=== PATIENT | female | born 1980 | race Caucasian/White ===

== ENCOUNTER 2022-11-13 06:42 | Emergency (ER) | payer BC, SELFPAY ==
[2022-11-13 06:52] VITALS: BP 126/86; PULSE 76; RESP 18; TEMP 36.5; O2SAT 100; BMI 25.1
--- NOTE | 2022-11-13 07:59 | ED.GENADULT ---
HPI - General Adult General Chief complaint: Sore Throat Stated complaint: swollen throat Time Seen by Provider: 11/13/22 07:21 History of Present Illness HPI narrative: 42-year-old woman here with complaint of sore throat. Seemed to exacerbate more quickly or least woke feeling like she was not going to be able to breathe. This made her worried and felt she should be evaluated. Is not having any trouble breathing now. Does not necessarily endorse shortness of breath when flat otherwise. She has not had a fever. Has tried ibuprofen and saltwater gargles. She has had some degree of pain over the last week. Does hurt to swallow. As soon as I sit down she notes how she just feels claustrophobic in their room at the end over here and is wondering if we can just call her with results of ?strep and COVID? that were pending. Related Data Home Medications Medication Instructions Recorded Confirmed dextroamphetamine-amphetamine 15 1 tab PO BID 11/13/22 11/13/22 mg tablet gabapentin 300 mg capsule 300 mg PO 3XD 11/13/22 11/13/22 trazodone 50 mg tablet 50 mg PO QPM 11/13/22 11/13/22 venlafaxine 37.5 mg 37.5 mg PO DAILY 11/13/22 11/13/22 capsule,extended release 24 hr Allergies Allergy/AdvReac Type Severity Reaction Status Date / Time No Known Drug Allergies Allergy Verified 11/13/22 06:54 Review of Systems Status of ROS: Reports: 6 or more systems reviewed and unremarkable except as noted in History and below Exam Narrative: Exam Narrative: Breathing easily. NAD. No stridor. Does seem mildly agitated. Carefully casually groomed. Lungs are clear. Neck is supple I do not appreciate lymphadenopathy. Seems maybe a little sore to palpation the right upper neck. Oropharynx does not demonstrate trismus however there is clear asymmetry with swelling of the right side soft palate notably more than the left. Not much erythema in the throat though. I do not see tonsillar edema. Heart with regular rate and rhythm. Const: Vital Signs, click to edit/add: Vital Signs - 24 hr 11/13/22 06:52 Temperature 97.7 F Pulse Rate [Left P ulse Oximeter] 76 Respiratory Rate 18 Blood Pressure [Ri ght Upper Arm] 126/86 Pulse Oximetry 100 Oxygen Delivery Me thod Room Air Documenting provider has reviewed patient's vital signs: yes Course Vital Signs Vital signs: Initial Vital Signs Temperature 97.7 F 11/13/22 06:52 Temperature Source Temporal Artery Scan 11/13/22 06:52 Pulse Rate 76 11/13/22 06:52 Respiratory Rate 18 11/13/22 06:52 Blood Pressure 126/86 11/13/22 06:52 Blood Pressure Mean 99 11/13/22 06:52 Blood Pressure Position Sitting 11/13/22 06:52 Pulse Oximetry 100 11/13/22 06:52 Oxygen Delivery Method Room Air 11/13/22 06:52 Vital Signs Temperature 97.7 F 11/13/22 06:52 Pulse Rate 76 11/13/22 06:52 Respiratory Rate 18 11/13/22 06:52 Blood Pressure 126/86 11/13/22 06:52 Pulse Oximetry 100 11/13/22 06:52 Oxygen Delivery Method Room Air 11/13/22 06:52 Temperature 97.7 F 11/13/22 06:52 Pulse Rate 76 11/13/22 06:52 Respiratory Rate 18 11/13/22 06:52 Blood Pressure 126/86 11/13/22 06:52 Pulse Oximetry 100 11/13/22 06:52 Oxygen Delivery Method Room Air 11/13/22 06:52 Medical Decision Making MDM Narrative Medical decision making narrative: I do have concerns of abscess which I discussed with Soila. She began rubbing her upper right throat at that point. I think less likely is strep or COVID or influenza. Certainly possible that there is viral process here otherwise but would want to definitely rule out a elvia tonsillar abscess. I perceived agreement with this plan. She did not feel she needed anything for pain nausea at this time. I left to place orders including contrasted soft tissue CT. Subsequently heard that Soila had departed the emergency department. Discharge Plan Discharge Clinical Impression: Left against medical advice, Abscess, peritonsillar, Pharyngitis Patient Disposition: Left Against Medical Advice Condition: Unchanged Prescriptions: No Action venlafaxine 37.5 mg capsule,extended release 24hr 37.5 mg PO DAILY trazodone 50 mg tablet 50 mg PO QPM dextroamphetamine-amphetamine 15 mg tablet 1 tab PO BID gabapentin 300 mg capsule 300 mg PO 3XD Follow Up/Referrals: Angeles Head PAYuriC [Primary Care Provider] - Stand Alone Forms: MyHealth Info Instructions
--- NOTE | 2022-11-13 08:12 | ED.NURSE ---
Pt reports she cannot be in the room anymore and left AMA around 0742
[2022-11-13 08:16] LABS: Strep A DNA Probe* NOT DETECTED (Not Detectd)
[2022-11-13 08:21] LABS: PCR FLU A Negative PCR FLU A (Negative); PCR FLU B Negative PCR FLU B (Negative); PCR RSV Negative PCR RSV (Negative)
[2022-11-13 08:30] LABS: SARS PCR* Negative SARS-CoV-2 (Negative)
== END 2022-11-13 08:41 | disposition left against medical advice (07) ==
LOC: ED 08:40
PROVIDERS: Emergency Provider Family Medicine; PCP Physician Assistant Medical
DX: J36 Peritonsillar abscess (principal); Z53.29 Procedure and treatment not carried out because of patient's decision for other reasons
CPT/HCPCS: 80048; 85025; 86140; 87631; 87651; 99283

== ENCOUNTER 2022-11-13 20:32 | Emergency (ER) | payer BC, SELFPAY ==
[2022-11-13 20:38] VITALS: BP 138/98; PULSE 92; RESP 16; TEMP 36.4; O2SAT 100; BMI 25.1
--- NOTE | 2022-11-13 20:55 | ED.GENADULT ---
HPI - General Adult General Date Seen: 11/13/22 <Erica Cabrera MD - Last Filed: 11/15/22 16:42> Chief complaint: Ear/Nose/Throat Problem <Erica Cabrera MD - Last Filed: 11/15/22 16:42> Stated complaint: throat swollen <Erica Cabrera MD - Last Filed: 11/15/22 16:42> Time Seen by Provider: 11/13/22 20:54 <Erica Cabrera MD - Last Filed: 11/15/22 16:42> Source: patient <Erica Cabrera MD - Last Filed: 11/15/22 16:42> Mode of arrival: ambulatory <MD Yuri Lei Last Filed: 11/15/22 16:42> Limitations: no limitations <MD Yuri Lei Last Filed: 11/15/22 16:42> History of Present Illness HPI narrative: Patient is a 42-year-old female here for re-evaluation of right throat swelling and pain. She was here early this morning and the plan was to do a CT scan but she says that she was just getting claustrophobic, she was worried about work, she says the ER door outside her room kept opening and closing the whole thing just was freaking her out so she left AMA. She says she is now feeling calmer, and wants to find out what is wrong with her throat. She has not had fevers, she is eating and drinking okay, but continues to have swelling and pain in the right side of her throat. <Erica Cabrera MD - Last Filed: 11/15/22 16:42> Related Data Home medications: Home Medications Medication Instructions Recorded Confirmed dextroamphetamine-amphetamine 15 1 tab PO BID 11/13/22 11/13/22 mg tablet gabapentin 300 mg capsule 300 mg PO 3XD 11/13/22 11/13/22 trazodone 50 mg tablet 50 mg PO QPM 11/13/22 11/13/22 venlafaxine 37.5 mg 37.5 mg PO DAILY 11/13/22 11/13/22 capsule,extended release 24 hr <MD Yuri Lei Last Filed: 11/15/22 16:42> Allergies/adverse reactions: Allergies Allergy/AdvReac Type Severity Reaction Status Date / Time No Known Drug Allergies Allergy Verified 11/13/22 06:54 <Erica Cabrera MD - Last Filed: 11/15/22 16:42> Review of Systems Status of ROS: Reports: 6 or more systems reviewed and unremarkable except as noted in History and below <Erica Cabrera MD - Last Filed: 11/15/22 16:42> [facility] Social History: Social History Smoking Status: Light tobacco smoker What tobacco products do you use: cigarettes Do you use any of these nicotine containing products: None Second hand tobacco smoke exposure: No How often do you have a drink containing alcohol: never How often do you have six or more drinks on one occasion: Never AUDIT-C Alcohol total score: 0 Non-prescribed substance use: denies use <Erica Cabrera MD - Last Filed: 11/15/22 16:42> Exam Narrative: Exam Narrative: Vital signs as noted above. In general, an alert, well-appearing patient. Voice is normal. Head: Normocephalic, atraumatic. Eyes: Pupils are equal reactive. Extraocular movements are full. Conjunctivae are normal. ENT: Mucous membranes are moist. She does have asymmetric swelling of the soft palate on the right with shift of the uvula to the left. Airways patent. Neck: Supple without lymphadenopathy. No stridor. Heart: Regular rate and rhythm. No murmur or rub. Lungs: Clear bilaterally. No increased work of breathing, crackles or wheezes. Abdomen: Soft and nontender. No organomegaly. Extremities: Well perfused. No edema. No calf tenderness. Pulses intact. Neurologic: Patient is alert and oriented to person and place. Speech is fluent. Face is symmetric. Moves all extremities equally. Affect: Normal. Skin: Warm and dry. Well perfused. <Erica Cabrera MD - Last Filed: 11/15/22 16:42> Const: Vital Signs, click to edit/add: Vital Signs - 24 hr 11/13/22 20:38 11/13/22 21:14 11/13/22 21:41 Temperature 97.5 F L Pulse Rate [Pulse Oximeter] 92 73 71 Respiratory Rate 16 18 18 Blood Pressure [Le ft Upper Arm] 138/98 H 129/84 125/86 Pulse Oximetry 100 98 96 Oxygen Delivery Me thod Room Air Room Air 11/13/22 22:44 Temperature Pulse Rate [Pulse Oximeter] 73 Respiratory Rate 18 Blood Pressure [Le ft Upper Arm] 132/99 H Pulse Oximetry 100 Oxygen Delivery Me thod Room Air <Erica Cabrera MD - Last Filed: 11/15/22 16:42> Vital Signs, click to edit/add: Vital Signs - 24 hr 11/13/22 20:38 11/13/22 21:14 11/13/22 21:41 Temperature 97.5 F L Pulse Rate [Pulse Oximeter] 92 73 71 Respiratory Rate 16 18 18 Blood Pressure [Le ft Upper Arm] 138/98 H 129/84 125/86 Pulse Oximetry 100 98 96 Oxygen Delivery Me thod Room Air Room Air 11/13/22 22:44 Temperature Pulse Rate [Pulse Oximeter] 73 Respiratory Rate 18 Blood Pressure [Le ft Upper Arm] 132/99 H Pulse Oximetry 100 Oxygen Delivery Me thod Room Air <Laura Diana MD - Last Filed: 11/14/22 00:17> Documenting provider has reviewed patient's vital signs: yes <Erica Cabrera MD - Last Filed: 11/15/22 16:42> Course Course Hospital Course: Overall she is well-appearing, not showing any signs of toxicity or airway compromise. She does however have asymmetric swelling around her right tonsil and palate and I do agree that abscess needs to be ruled out. I have ordered an IV, fluids, labs and CT. She says that she is now feeling a lot calmer and will be able to complete evaluation. She denies the need for anything for pain right now. Patient is signed out to Dr. Manley who will follow up on labs and CT. Please see an addendum for final disposition and plan. <Erica Cabrera MD - Last Filed: 11/15/22 16:42> Reevaluation(s) Reevaluation #1: Have called [facility] to let them know that patient is quite anxious to get her report. They states she is next in line. Have let the patient know this. She has been wanting to leave, have already discussed with her that we need her to stay. There certainly can be abscess, airway compromise. I really do not feel comfortable calling her with x-ray results from a soft tissue CT of her neck. Reviewed with her that we will have no way of getting her meds. She did agree to stay. <Laura Diana MD - Last Filed: 11/14/22 00:17> Time: 23:48 <Laura Diana MD - Last Filed: 11/14/22 00:17> Reevaluation #2: Have reviewed CT findings with patient. She knows she does not have COVID or strep. Did reach out to our ENT Dr. Means. He recommends steroids for 6 days in trial of outpatient treatment. Patient would prefer this, does not want to going to the hospital, does not want surgery. She is happy to hear that we will be trying outpatient management with antibiotics and steroids. <Laura Diana MD - Last Filed: 11/14/22 00:17> Time: 00:05 <Laura Diana MD - Last Filed: 11/14/22 00:17> Consultations Consultation #1: Dr. Means did call, requested that the patient come to clinic to see him in the morning here at [place] at 930am as she wants to go home. He will assess her and see if he feels that surgery should be considered. Reassured him that she can currently open mouth, has no symptoms of airway compromise. <Laura Diana MD - Last Filed: 11/14/22 00:17> Time: 00:15 <Laura Diana MD - Last Filed: 11/14/22 00:17> Vital Signs Vital signs: Initial Vital Signs Temperature 97.5 F L 11/13/22 20:38 Temperature Source Temporal Artery Scan 11/13/22 20:38 Pulse Rate 92 11/13/22 20:38 Pulse Rhythm Regular 11/13/22 20:38 Respiratory Rate 16 11/13/22 20:38 Blood Pressure 138/98 H 11/13/22 20:38 Blood Pressure Mean 111 H 11/13/22 20:38 Pulse Oximetry 100 11/13/22 20:38 Oxygen Delivery Method Room Air 11/13/22 20:38 Vital Signs Temperature 97.5 F L 11/13/22 20:38 Pulse Rate 92 11/13/22 20:38 Respiratory Rate 16 11/13/22 20:38 Blood Pressure 138/98 H 11/13/22 20:38 Pulse Oximetry 100 11/13/22 20:38 Oxygen Delivery Method Room Air 11/13/22 20:38 Temperature 97.5 F L 11/13/22 20:38 Pulse Rate 73 11/13/22 22:44 Respiratory Rate 18 11/13/22 22:44 Blood Pressure 132/99 H 11/13/22 22:44 Pulse Oximetry 100 11/13/22 22:44 Oxygen Delivery Method Room Air 11/13/22 22:44 <Erica Cabrera MD - Last Filed: 11/15/22 16:42> Initial Vital Signs Temperature 97.5 F L 11/13/22 20:38 Temperature Source Temporal Artery Scan 11/13/22 20:38 Pulse Rate 92 11/13/22 20:38 Pulse Rhythm Regular 11/13/22 20:38 Respiratory Rate 16 11/13/22 20:38 Blood Pressure 138/98 H 11/13/22 20:38 Blood Pressure Mean 111 H 11/13/22 20:38 Pulse Oximetry 100 11/13/22 20:38 Oxygen Delivery Method Room Air 11/13/22 20:38 Vital Signs Temperature 97.5 F L 11/13/22 20:38 Pulse Rate 92 11/13/22 20:38 Respiratory Rate 16 11/13/22 20:38 Blood Pressure 138/98 H 11/13/22 20:38 Pulse Oximetry 100 11/13/22 20:38 Oxygen Delivery Method Room Air 11/13/22 20:38 Temperature 97.5 F L 11/13/22 20:38 Pulse Rate 73 11/13/22 22:44 Respiratory Rate 18 11/13/22 22:44 Blood Pressure 132/99 H 11/13/22 22:44 Pulse Oximetry 100 11/13/22 22:44 Oxygen Delivery Method Room Air 11/13/22 22:44 <Laura Diana MD - Last Filed: 11/14/22 00:17> Medical Decision Making Lab Data Lab results reviewed: Yes I reviewed the patient's lab results <Laura Diana MD - Last Filed: 11/14/22 00:17> Labs: Lab Results 11/13/22 Range/Units 21:07 WBC 10.65 (4.50-11.00) K/uL RBC 4.49 (4.00-5.20) m/uL Hgb 13.7 (12.0-16.0) gm/dL Hct 41.1 (33.0-51.0) % MCV 92 (80-100) fL MCH 31 (26-34) pg MCHC 33 (32-36) gm/dL RDW Coeff of Lia 12.3 (11.5-15.5) % Plt Count 308 (140-440) K/uL Neut % (Auto) 77.1 H (42.0-72.0) % Lymph % (Auto) 15.0 L (20-44) % [place] % (Auto) 5.7 (0.0-11.0) % Eos % (Auto) 0.8 (0.0-7.0) % Baso % (Auto) 0.3 (0.0-3.0) % Neut # (Auto) 8.20 H (1.7-7.0) K/uL Lymph # (Auto) 1.60 (0.90-2.90) K/uL [place] # (Auto) 0.60 (0.00-0.90) K/UL Eos # (Auto) 0.08 (0.00-0.50) K/uL Baso # (Auto) 0.03 (0.00-0.30) K/uL Sodium 134 L (135-149) mmol/L Potassium 3.5 L (3.6-5.1) mmol/L Chloride 104 (96-114) mmol/L Carbon Dioxide 24 (20-32) mmol/L BUN 8 (5-24) mg/dL Creatinine 0.6 (0.5-1.5) mg/dL Estimated Creat Clear 117.57 Estimated GFR 114 ml/min Glucose 109 (60-115) mg/dL Calcium 9.1 (8.4-10.6) mg/dL C-Reactive Protein 2.6 H (0.5-1.0) mg/dL SARS-CoV-2 (PCR) Negative SARS-CoV-2 (Negative) Group A Strep DNA NOT DETECTED (Not Detectd) <Erica Cabrera MD - Last Filed: 11/15/22 16:42> Lab Results 11/13/22 Range/Units 21:07 WBC 10.65 (4.50-11.00) K/uL RBC 4.49 (4.00-5.20) m/uL Hgb 13.7 (12.0-16.0) gm/dL Hct 41.1 (33.0-51.0) % MCV 92 (80-100) fL MCH 31 (26-34) pg MCHC 33 (32-36) gm/dL RDW Coeff of Lia 12.3 (11.5-15.5) % Plt Count 308 (140-440) K/uL Neut % (Auto) 77.1 H (42.0-72.0) % Lymph % (Auto) 15.0 L (20-44) % [place] % (Auto) 5.7 (0.0-11.0) % Eos % (Auto) 0.8 (0.0-7.0) % Baso % (Auto) 0.3 (0.0-3.0) % Neut # (Auto) 8.20 H (1.7-7.0) K/uL Lymph # (Auto) 1.60 (0.90-2.90) K/uL [place] # (Auto) 0.60 (0.00-0.90) K/UL Eos # (Auto) 0.08 (0.00-0.50) K/uL Baso # (Auto) 0.03 (0.00-0.30) K/uL Sodium 134 L (135-149) mmol/L Potassium 3.5 L (3.6-5.1) mmol/L Chloride 104 (96-114) mmol/L Carbon Dioxide 24 (20-32) mmol/L BUN 8 (5-24) mg/dL Creatinine 0.6 (0.5-1.5) mg/dL Estimated Creat Clear 117.57 Estimated GFR 114 ml/min Glucose 109 (60-115) mg/dL Calcium 9.1 (8.4-10.6) mg/dL C-Reactive Protein 2.6 H (0.5-1.0) mg/dL SARS-CoV-2 (PCR) Negative SARS-CoV-2 (Negative) Group A Strep DNA NOT DETECTED (Not Detectd) <Laura Diana MD - Last Filed: 11/14/22 00:17> Imaging Data CT- Other: Attestation: I have reviewed the pertinent imaging results. <Laura Diana MD - Last Filed: 11/14/22 00:17> Radiologist's impression: Patient: REEMA KELSEY Facility:?[facility] Patient ID:?[id number] Site Patient ID:?[id number]. Site :?[id number] Study:?CT ST Neck W ISOVUE 370-11/13/2022 10:42:54 PM Ordering Physician:?Rick Maldonado Final Report: INDICATION: Right peritonsillar swelling and pain for 2 days. COMPARISON: None available. TECHNIQUE: CT examination of the neck is performed using spiral technique during the uneventful intravenous administration of 79 cc of Isovue 370. 3 mm thick axial sections were made along with coronal and sagittal sections. Please note that all CT scans at this facility use dose modulation, iterative reconstruction, and/or weight-based dosing when appropriate to reduce radiation dose to as low as reasonably achievable. FINDINGS: There is prominent swelling of the right palatine tonsil with an abscess in the lateral tonsil measuring 1.3 x 1.2 x 2.0 centimeters. There is moderate swelling of the left palatine tonsil. There is moderate narrowing of the hypopharyngeal airway, with no sign of impending airway compromise. There is no sign of enlargement of the adenoids or hypertrophy of the lymphoid tissue at the base the tongue. There is mild right superior jugular chain lymphadenopathy, level II, probably reactive. The largest lymph node has a short axis diameter of 1.4 centimeters. There is no sign of cervical mass or adenopathy on today`s study. The salivary glands are normal in appearance. The visualized posterior fossa, mastoids, skull base, and orbits are normal in appearance. The paranasal sinuses are clear. The great vessels are unremarkable. The thyroid gland is normal in appearance. The visualized upper chest is clear. The visualized upper mediastinum is normal in appearance. There is severe C5-6 and C6-7 disc degenerative disease with moderate diffuse disc bulging and mild posterior osteophytic ridging. There is moderate loss of height of C6 and mild loss of height of the C5 and C7 vertebral bodies, remodeling related to the disc degenerative disease. IMPRESSION: Abscess in the lateral right palatine tonsil measuring 1.3 x 1.2 x 2.0 centimeters, associated with prominent swelling of the right tonsil. Moderate swelling of the left palatine tonsil with no sign of an additional abscess. Mild reactive superior jugular chain lymphadenopathy on the right. Please note that all CT scans at this facility use dose modulation, iterative reconstruction, and/or weight-based dosing when appropriate to reduce radiation dose to as low as reasonably achievable. Dictated by Harman Kaba MD @ 11/13/2022 11:55:56 PM (Electronic Signature) <Laura Diana MD - Last Filed: 11/14/22 00:17> Discharge Plan Discharge Clinical Impression: Abscess, peritonsillar <Erica Cabrera MD - Last Filed: 11/15/22 16:42> Patient Disposition: Home, Self-Care <Erica Cabrera MD - Last Filed: 11/15/22 16:42> Condition: Stable <Erica Cabrera MD - Last Filed: 11/15/22 16:42> Instructions: Peritonsillar Abscess (ED) <Erica Cabrera MD - Last Filed: 11/15/22 16:42> Additional Instructions: Start oral antibiotics tonight and take as prescribed. Next dose of prednisone do tomorrow afternoon/evening, then take twice a day as prescribed. Tylenol and ibuprofen as needed for pain management. If you are not improving as far as throat swelling or pain in the next few days, feel that your worsening at any point, do need to return for further evaluation. <Erica Cabrera MD - Last Filed: 11/15/22 16:42> Activity Level: Activity as Tolerated <Erica Cabrera MD - Last Filed: 11/15/22 16:42> Activity as Tolerated <Laura Diana MD - Last Filed: 11/14/22 00:17> Prescriptions: No Action venlafaxine 37.5 mg capsule,extended release 24hr 37.5 mg PO DAILY trazodone 50 mg tablet 50 mg PO QPM dextroamphetamine-amphetamine 15 mg tablet 1 tab PO BID gabapentin 300 mg capsule 300 mg PO 3XD <Erica Cabrera MD - Last Filed: 11/15/22 16:42> Follow Up/Referrals: Angelse Head PA-C [Primary Care Provider] - <Erica Cabrera MD - Last Filed: 11/15/22 16:42> Stand Alone Forms: MyHealth Info Instructions <Erica Cabrera MD - Last Filed: 11/15/22 16:42>
[2022-11-13] MEDS: 0.9 % SODIUM CHLORIDE 1000 ml 1,000 ML IV (21:05)
[2022-11-13 21:14] VITALS: BP 129/84; PULSE 73; RESP 18; O2SAT 98
[2022-11-13 21:41] VITALS: BP 125/86; PULSE 71; RESP 18; O2SAT 96
[2022-11-13 21:41] LABS: Chloride* 104 mmol/L (96-114); Potassium* 3.5 mmol/L (3.6-5.1); Sodium* 134 mmol/L (135-149)
[2022-11-13 21:44] LABS: Creatinine* 0.6 mg/dL (0.5-1.5); Est. Creatinine Clearance* 117.57; Estimated Glomerular Filt Rate 114 ml/min
[2022-11-13 21:45] LABS: Blood Urea Nitrogen* 8 mg/dL (5-24); Calcium* 9.1 mg/dL (8.4-10.6); Carbon Dioxide* 24 mmol/L (20-32); Glucose* 109 mg/dL (60-115)
[2022-11-13 21:47] LABS: Basophils Absolute Auto 0.03 K/uL (0.00-0.30); Basophils Percent Auto 0.3 % (0.0-3.0); Eosinophils Absolute Auto 0.08 K/uL (0.00-0.50); Eosinophils Percent Auto 0.8 % (0.0-7.0); Hematocrit 41.1 % (33.0-51.0); Hemoglobin* 13.7 gm/dL (12.0-16.0); Immature Granulocytes Abs Auto 0.12 K/uL (0.00-0.30); Immature Granulocytes Pct Auto 1.1 %; Mean Corpuscular HGB Conc 33 gm/dL (32-36); Mean Corpuscular Hemoglobin 31 pg (26-34); Mean Corpuscular Volume 92 fL (80-100); Monocytes Percent Auto 5.7 % (0.0-11.0); Neutrophils Percent Auto 77.1 % (42.0-72.0); Platelet Count* 308 K/uL (140-440); RDW Coefficient of Variation % 12.3 % (11.5-15.5); Red Blood Count 4.49 m/uL (4.00-5.20); White Blood Count* 10.65 K/uL (4.50-11.00)
[2022-11-13 21:48] LABS: C Reactive Protein* 2.6 mg/dL (0.5-1.0)
[2022-11-13 21:49] LABS: Slide Review Reflex No
[2022-11-13 22:15] LABS: SARS PCR* Negative SARS-CoV-2 (Negative); Strep A DNA Probe* NOT DETECTED (Not Detectd)
[2022-11-13 22:44] VITALS: BP 132/99; PULSE 73; RESP 18; O2SAT 100
--- NOTE | 2022-11-13 23:35 | PC.NURSE ---
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 education provided on reason for length of stay and that her CT had not been read yet by radiologist. patient very frustrated again states she needs to go and asked if she can just have something for the swelling, cant you guys just call me with my results. updated. Dr Buckner in room to discuss concerns with patient and again explain plan of care. patient agrees to wait for CT results
[2022-11-14] MEDS: predniSONE 10 MG TABLET 40 MG PO (00:12)
== END 2022-11-14 00:18 | disposition home or self-care (01) ==
PROVIDERS: Emergency Provider Emergency Medicine; PCP Physician Assistant Medical
DX: J36 Peritonsillar abscess (principal)
CPT/HCPCS: 36415; 70491; 80048; 85025; 86140; 87635; 87651; 99284; J7030; J7512; Q9967